=== PATIENT | female | born 1935 | race Hispanic/Latino ===

== ENCOUNTER 2024-01-16 22:14 | Emergency (ER) | payer OTHER, SELFPAY ==
[2024-01-16 22:16] VITALS: BP 175/108
[2024-01-16 22:33] VITALS: BP 165/82
[2024-01-16 22:44] LABS: % Basophils 1.4 % (0-2); % Eosinophils 2.9 % (0-6); % Immature Granulocytes 0.2 % (0-0.5); % Lymphocytes 36.9 % (20.5-51.1); % Monocytes 7.9 % (1.7-9.3); % Neutrophils 50.7 % (42.2-75.2); Absolute Basophils 0.1 10^3/uL (0-0.2); Absolute Eosinophils 0.1 10^3/uL (0-0.7); Absolute Lymphocytes 1.6 10^3/uL (1.2-3.4); Absolute Monocytes 0.4 10^3/uL (0.1-0.6); Absolute Neutrophils 2.3 10^3/uL (1.4-6.5); Hematocrit 41.8 % (37.0-47.0); Hemoglobin 14.8 g/dL (12.0-16.0); Mean Corp Hgb Conc. 35.4 g/dL (33.0-37.0); Mean Corpuscular Hgb 30.3 pg (27.0-31.0); Mean Corpuscular Volume 85.7 fL (81.0-99.0); Nucleated Red Blood Cells % 0 %; Platelet Count 265 10^3/uL (130-400); Red Blood Cell Count 4.88 10^6/uL (4.20-5.40); Red Cell Dist. Width 12.7 % (11.5-14.5); White Blood Cell Count 4.4 10^3/uL (4.8-10.8)
[2024-01-16 23:00] VITALS: BP 156/77
[2024-01-16 23:01] LABS: ALT (SGPT) 24 U/L (0-35); AST (SGOT) 27 U/L (14-36); Albumin 4.4 g/dl (3.5-5.0); Alkaline Phosphatase 137 U/L (38-126); Blood Urea Nitrogen 11 mg/dl (7-17); Calcium 10.9 mg/dl (8.4-10.2); Carbon Dioxide 23 mmol/L (22-30); Chloride 110 mmol/L (98-107); Glucose 113 mg/dl (70-99); Potassium 3.6 mmol/L (3.5-5.1); Sodium 139 mmol/L (135-145); Total Bilirubin 0.8 mg/dl (0.2-1.3); Total Protein 7.1 g/dl (6.3-8.2); eGFR > 60.00
--- NOTE | 2024-01-16 23:54 | ED.GENMED ---
History of Present Illness
General
Chief Complaint: Blood Pressure Problem
Source: patient and family (Daughter)
Exam Limitations: other (Language barrier)
Time Seen by Provider: 01/16/24 22:55
Travel History
Have you had any contact with someone who has COVID-19?: No
Do you have any symptoms of coronavirus? Fever > 100 degrees, chills, cough, shortness of breath, sore throat, loss of taste or smell, muscle aches, or headache?: No
History of Present Illness
History of Present Illness:
This is a 88 year old female that is brought in by daughter with hypertension. Daughter states that she has been upset as her sister is sick. State that yesterday her BP was 180-184/90. States that on Thursday she was c/o tingling in her fingers and
mouth felt numb. States that she is also wobbly when she walks. States that she is not eating. States that tonight around 6pm she said that she had chest pain, SOB, nausea, headache. Denies any fever, chills, abd pain, vomiting, diarrhea,
dizziness, urinary burning.
Past History
Past History
ED Past Medical History: Arrthythmia, GERD, HTN and Other (Osteoarthritis, UTi, )
ED Past Surgical History: Cholecystectomy, and Other (Hernia repair X 2, Cataracts)
Patient has exhibited threatening behavior?: No
Social History
Tobacco: Former smoker
Alcohol: None
Drug: None
Personal: Single
Living: with family
Employment: Retired
Review of Systems
Review of Systems
All Other Systems: ROS reviewed and negative except as documented in HPI and ROS
Constitutional: Reports no symptoms; Denies fever or chills
EENT: Reports no symptoms
Respiratory: Reports trouble breathing; Denies cough
Cardiac: Reports chest pain
ABD/GI: Reports nausea; Denies abdominal pain, vomiting or diarrhea
: Reports no symptoms; Denies dysuria, frequency or urgency
Musculoskeletal: Reports no symptoms
Skin: Reports no symptoms
Neurological: Reports headache; Denies dizzy
Psychiatric: Reports no symptoms
Phy Exam
General Physical Exam
General Presentation: no apparent distress
General age: appears stated age
General Skin: warm and dry
General Habitus: elderly
General Mental: alert
General Hydration: appears well hydrated
ENT Exam
ENT Exam: TM's normal, pharynx normal and neck supple
Eye Exam
Eye Exam: EOMI
Cardiovascular Exam
Cardiovascular Exam: regular rate/rhythm, no edema, no murmur and normal peripheral pulses
Pulmonary Exam
Pulmonary Exam: lungs clear, no respiratory distress, no rales, chest non tender, no crackles, no rhonchi, no wheezing and no cough
Gastrointestinal Exam
Gastrointestinal Exam: normal bowel sounds, soft, no organomegaly, no pulsatile mass, non distended and tender (Epigastric tenderness)
Musculoskeletal Exam
Musculoskeletal Exam: full ROM and no edema
Skin Exam
Skin Exam: normal color, warm/dry, no rash and no petechia
Psychiatric Exam
Psychiatric Exam: normal mood/affect
Course
Orders/Labs/Results
Orders:
Orders
01/16/24 22:39
Complete Blood Count/With Diff Urgent
Comprehensive Metabolic Panel Urgent
01/16/24 23:53
Ondansetron Injectable [Zofran] 4 mg IV NOW STA
Pantoprazole [Protonix IV] 40 mg IV NOW STA
01/16/24 23:57
Troponin I Urgent
01/17/24 00:00
CT Head W/o Iv Contrast Urgent
Reason For Exam: Headache, Tingling in fingers
01/17/24 00:03
Electrocardiogram (*1) Urgent
Reason for Study: Abdominal Pain
EKG- Treatment ONCE
CR Chest - 2 Views Urgent
Comment:
Reason For Exam: SOB
01/17/24 00:22
Urinalysis Reflex To Culture Urgent
Date Specimen was Collected: 01/17/24
Time Specimen was Collected: 00:04
01/17/24 01:09
Acetaminophen [Tylenol] 1,000 mg PO NOW STA
Abnormal Lab Results
01/16/24
22:39
WBC 4.4 L 10^3/uL
(4.8-10.8)
Chloride 110 H mmol/L
(98-107)
Glucose 113 H mg/dl
(70-99)
Calcium 10.9 H mg/dl
(8.4-10.2)
Alkaline Phosphatase 137 H U/L
(38-126)
01/16/24 22:39
01/16/24 22:39
WBC slightly low. Chloride slightly elevated. Glucose nonfasting. Calcium slightly elevated ALk phos elevation.
Vital Signs
Initial and Last Documented VS:
Initial Vital Signs
Temp Pulse Resp BP Pulse Ox
98.3 F 82 18 175/108 98
01/16/24 22:16 01/16/24 22:16 01/16/24 22:16 01/16/24 22:16 01/16/24 22:16
Last Documented Vital Signs
Temp Pulse Resp BP Pulse Ox
98.3 F 63 14 145/77 98
01/16/24 22:16 01/17/24 01:00 01/17/24 01:00 01/17/24 01:00 01/16/24 22:16
MDM/Problems Addressed
Differential Diagnosis Includes:
Gastritis, GERD,
MDM/Problems Addressed:
This is a 88 year old female that comes in with c/o epigastric discomfort. States that she had chest pain at 6am. States that she has been upset as her sister is sick. States that she is not eating, is nauseated, has a headache, and some SOB.
Will get Labs, Chest x-ray, CT head, Urine.
Back into see patient and daughter. Patient states that she is feeling better. Explained that her chest x-ray was normal. CT of the head was normal. Urine is negative for infection. Troponin is normal. Feel that her epigastric discomfort is
gastritis. Explained to patient that she has to eat. Will give patient a prescription for Protonix to help decrease the acid. Patient to follow up with the family doctor. BP at this time is 145/77. Patent to return with any concerns.
Chronic conditions affecting care: HTN
Acute Exacerbation and/or Progression of Chronic Illness: HTN
*Radiology
Radiology exam reviewed: preliminary read by ED provider (Chest- Negative for active disease) and radiology read reviewed (CT head- No acute intracranial abnormality. NO acute territorial infarct, hemorrhage, mass effect, or midline shift. Mild
microangiopathy. )
*Pulse Oximetry
Patient hypoxic: no
*EKG
Interpreted by ED Provider?: Yes
Heart Rate: 66
Rate: normal
Rhythm: sinus
[employer]: normal axis
Interval: normal interval
QRS Pattern: normal QRS
Ischemia: no ischemia (Checked by Dr. Strong)
*Critical Care Note
Total Time (30-74mins, 75-104mins- exclusive of procedures): Not Applicable
ED Attending Note
-
Portions of this chart may have been created with voice recognition software.� Occasional wrong word or��sound alike� substitutions may have occurred due to the inherent limitations of voice recognition software.
Discharge Plan
Departure
Patient Disposition: Home (Routine Discharge)
Date of Disposition: 01/17/24
Time of Disposition: 01:24
Patient with high blood pressure during this ER visit?: Yes
Condition: Good
Covid-19: Not Applicable
Discharge Problem:
Gastritis
Instructions: Gastritis (DC), Ulcer and Gastritis Diet, BLOOD PRESSURE
Prescriptions:
New
pantoprazole [Protonix] 40 mg tablet,delayed release (DR/EC)
40 mg PO DAILY Qty: 30 0RF
No Action
amlodipine 2.5 MG tablet
2.5 mg PO TID
pantoprazole 40 MG tablet,delayed release (/ONEIDA)
40 mg PO BID Qty: 60 0RF
Referrals:
Erin Mauricio PA [Family Provider] - Follow up in 2-3 days
Activity Restrictions/Additional Instructions:
As discussed, your blood work is normal. Your Chest x-ray, CT of the head and urine are all normal. This is most likely a gastritis. Please use the Protonix daily to help decrease the acid in the stomach. This prescription has been sent to your
Pharmacy. Please eat a well balanced diet. Follow up with the family doctor for recheck. IF YOU HAVE INCREASED OR CHANGING ABD PAIN, OR YOU HAVE ANY OTHER CONCERNS PLEASE RETURN TO THE EMERGENCY ROOM.
Interventions
Interventions:
*Risk Screen - Suicide Last Done: 01/16/24 22:16
*General Assessment Last Done: 01/16/24 22:16
*ED COVID-19 Vaccine History Last Done: 01/16/24 22:16
ED- Cardiac Assessment Last Done: 01/16/24 22:42
ED- Neurological Assessment Last Done: 01/16/24 22:42
ED- Pulmonary Assessment Last Done: 01/16/24 22:42
Discharge Date and Time
Print Language: THAI
[2024-01-16] MEDS: ZOFRAN 4 MG IV (23:58)
[2024-01-16] MEDS: PROTONIX IV 40 MG IV (23:58)
[2024-01-17] VITALS: BP 147/75
[2024-01-17 00:33] LABS: Troponin I < 0.012 ng/ml
[2024-01-17 00:44] LABS: Urine Albumin Negative (Neg - Trace); Urine Bilirubin Negative (Negative); Urine Character Clear (Clear); Urine Color Yellow; Urine Glucose Negative (Negative); Urine Ketone Negative (Negative); Urine Leukocyte Negative (Negative); Urine Nitrite Negative (Negative); Urine Occult Blood Negative (Negative); Urine Urobilinogen Negative (Neg - 1+)
[2024-01-17 01:00] VITALS: BP 145/77
[2024-01-17] MEDS: TYLENOL 1000 MG PO (01:16)
== END 2024-01-17 01:33 | disposition home or self-care (01) ==
LOC: EMR 22:14
PROVIDERS: Clinical Nurse Specialist Family Health; EMERGENCY PHYSICIAN Student in an Organized Health Care Education/Training Program; FAMILY PHYSICIAN Physician Assistant Medical
DX: K29.70 Gastritis, unspecified, without bleeding (principal); I10 Essential (primary) hypertension; Z87.891 Personal history of nicotine dependence
CPT/HCPCS: 99285; 96374; 96375; 70450; 71046; 80053; 81003; 84484; 85025; 93005

== ENCOUNTER → 2024-04-04 17:21 | Outpatient (REF) | payer OTHER, SELFPAY | LOC: RAD 17:21 | PROVIDERS: ATTENDING PHYSICIAN Physician Assistant Medical | DX: M25.511 Pain in right shoulder (principal) | CPT/HCPCS: 73030 ==

== ENCOUNTER → 2024-04-15 11:17 | Outpatient (REF) | payer OTHER, SELFPAY | LOC: PAVMRI 11:17 | PROVIDERS: ATTENDING PHYSICIAN Family Medicine | DX: R42 Dizziness and giddiness (principal); I10 Essential (primary) hypertension; R26.9 Unspecified abnormalities of gait and mobility | CPT/HCPCS: 70546; 70553; A9585 ==

== ENCOUNTER 2025-06-30 14:07 | Outpatient (RCR) | payer OTHER, SELFPAY | END 2025-06-30 23:59 | disposition home or self-care (01) | LOC: RPT 14:07 | PROVIDERS: ATTENDING PHYSICIAN Orthopaedic Surgery; FAMILY PHYSICIAN Physician Assistant Medical | DX: M75.41 Impingement syndrome of right shoulder (principal); Z73.6 Limitation of activities due to disability; M62.81 Muscle weakness (generalized) | CPT/HCPCS: 97010; 97110; 97162 ==

== ENCOUNTER 2025-08-03 11:02 | Outpatient (RCR) | payer OTHER, SELFPAY | END 2025-08-03 23:59 | disposition home or self-care (01) | LOC: RPT 11:02 | PROVIDERS: ATTENDING PHYSICIAN Orthopaedic Surgery; FAMILY PHYSICIAN Physician Assistant Medical | DX: M75.41 Impingement syndrome of right shoulder (principal); Z73.6 Limitation of activities due to disability; M62.81 Muscle weakness (generalized) | CPT/HCPCS: 97010; 97110 ==

== ENCOUNTER → 2025-09-01 12:09 | Outpatient (REF) | payer OTHER, SELFPAY | LOC: RAD 12:09 | PROVIDERS: ATTENDING PHYSICIAN Family Medicine | DX: K43.9 Ventral hernia without obstruction or gangrene (principal) | CPT/HCPCS: 74177; Q9967 ==

== ENCOUNTER 2025-09-05 17:58 | Inpatient (IN) | payer OTHER, SELFPAY ==
[2025-09-05] VITALS (15 sets, daily range): BP systolic 127–176; BP diastolic 67–94; BMI 28.3; BMI 25.7
--- NOTE | 2025-09-05 13:02 | ED.GENMED ---
History of Present Illness
<Janiya Mayer MD, Resident - Last Filed: 09/05/25 16:01>
General
Chief Complaint: Abdominal Pain
Source: patient and family
Exam Limitations: none
Time Seen by Provider: 09/05/25 12:51
Nursing documentation reviewed up to this point in time: agreed with
History of Present Illness
History of Present Illness:
89yo F with a hx of R femoral hernia (s/p repair x2) who presents with concern for bowel obstruction in s/o hernia recurrence.
Per patient's daughter at bedside, patient has had her R femoral hernia repaired multiple times over the years. Recently she began having pain and bulging in the RLQ and got CT scan of the abdomen on 09/01. CT was read as Right inguinal hernia
containing a short segment of small bowel without proximal bowel obstruction. Per patient's daughter, patient has been having difficulty with BMs the past 5 days. Gave 2x miralax, which did not help significantly. She has been passing flatus. Has
been having nausea but no vomiting. BMs have been minimal and very small, like little threads. Endorses ongoing RLQ pain but no sensation of tense or tight abdomen. PCP today recommended that she come to the ED because repeat read of the CT scan by
surgeon concluded that the bowel may be obstructed and pt may require surgery. Denies f/c. Prior intraabdominal sugeries include & cholecystectomy.
Past History
<Janiya Mayer MD, Resident - Last Filed: 09/05/25 16:01>
Past History
ED Past Medical History: Arrthythmia, GERD, HTN and Other (Osteoarthritis, UTi, )
ED Past Surgical History: Cholecystectomy, and Other (Hernia repair X 2, Cataracts)
Patient has exhibited threatening behavior?: No
Social History
Tobacco: Former smoker
Alcohol: None
Drug: None
Personal: Single
Living: with family
Employment: Retired
Review of Systems
<Janiya Mayer MD, Resident - Last Filed: 09/05/25 16:01>
Review of Systems
All Other Systems: ROS reviewed and negative except as documented in HPI and ROS
Constitutional: Reports no symptoms
EENT: Reports no symptoms
Respiratory: Reports no symptoms
Cardiac: Reports no symptoms
ABD/GI: Reports abdominal pain, nausea and constipated
: Reports no symptoms
Musculoskeletal: Reports no symptoms
Skin: Reports no symptoms
Neurological: Reports no symptoms
Phy Exam
<Janiya Mayer MD, Resident - Last Filed: 09/05/25 16:01>
General Physical Exam
General Presentation: mild distress
General age: appears stated age
General Skin: warm and dry
General Habitus: normal
General Mental: alert
Cardiovascular Exam
Cardiovascular Exam: regular rate/rhythm and no edema
Pulmonary Exam
Pulmonary Exam: no respiratory distress
Gastrointestinal Exam
Gastrointestinal Exam: soft, non distended, tender (tender to palpation bilateral lower quadrants, especially RLQ very tender (no guarding or rebound) ) and other (no palpable bulging hernia, no area of overlying erythema )
Neurological Exam
Neurological Exam: alert
Musculoskeletal Exam
Musculoskeletal Exam: full ROM
Skin Exam
Skin Exam: normal color
Psychiatric Exam
Psychiatric Exam: normal mood/affect
Course
<Janiya Mayer MD, Resident - Last Filed: 09/05/25 16:01>
Orders/Labs/Results
Orders:
Orders
09/05/25 13:37
Complete Blood Count/With Diff Urgent
Comprehensive Metabolic Panel Urgent
Lactic Acid Urgent
Lipase Urgent
Magnesium Urgent
0.9% Sodium Chloride 1000 ml [Nss] 1,000 ml IV BOLUS
Iohexol [Omnipaque] See Protocol PO NOW STA
Morphine Sulfate 4 mg IV NOW STA
Ondansetron Injectable [Zofran] 4 mg IV NOW STA
Abnormal Lab Results
09/05/25
13:37
Calcium 10.7 H mg/dl
(8.4-10.2)
09/05/25 13:37
09/05/25 13:37
Vital Signs
Initial and Last Documented VS:
Initial Vital Signs
Temp Pulse Resp BP Pulse Ox
97.9 F 86 20 162/94 98
09/05/25 12:23 09/05/25 12:23 09/05/25 12:23 09/05/25 12:23 09/05/25 12:23
Last Documented Vital Signs
Temp Pulse Resp BP Pulse Ox
98.6 F 76 19 176/94 97
09/05/25 13:29 09/05/25 14:26 09/05/25 14:26 09/05/25 14:26 09/05/25 14:26
<Luis Hernandez, DO - Last Filed: 09/05/25 13:54>
Orders/Labs/Results
Orders:
Orders
09/05/25 13:37
Complete Blood Count/With Diff Urgent
Comprehensive Metabolic Panel Urgent
Lactic Acid Urgent
Lipase Urgent
Magnesium Urgent
0.9% Sodium Chloride 1000 ml [Nss] 1,000 ml IV BOLUS
Iohexol [Omnipaque] See Protocol PO NOW STA
Morphine Sulfate 4 mg IV NOW STA
Ondansetron Injectable [Zofran] 4 mg IV NOW STA
Abnormal Lab Results
09/05/25
13:37
Calcium 10.7 H mg/dl
(8.4-10.2)
09/05/25 13:37
09/05/25 13:37
Vital Signs
Initial and Last Documented VS:
Initial Vital Signs
Temp Pulse Resp BP Pulse Ox
97.9 F 86 20 162/94 98
09/05/25 12:23 09/05/25 12:23 09/05/25 12:23 09/05/25 12:23 09/05/25 12:23
Last Documented Vital Signs
Temp Pulse Resp BP Pulse Ox
98.6 F 76 19 176/94 97
09/05/25 13:29 09/05/25 14:26 09/05/25 14:26 09/05/25 14:26 09/05/25 14:26
<Janiya Mayer MD, Resident - Last Filed: 09/05/25 16:01>
MDM/Problems Addressed
Differential Diagnosis Includes:
Partial SBO 2/2 R femoral hernia
Incarcerated or strangulated hernia not likely given lack of palpable bulge on exam, no red/dusky or tender bump
Less likely appendicitis, pancreatitis
MDM/Problems Addressed:
- Zofran
- Analgesia
- CBC, CMP, lipase
- PO contrast, will reimage abdomen
- Consult surgery
<Janiya Mayer MD, Resident - Last Filed: 09/05/25 16:01>
*Pulse Oximetry
SaO2: 98
Oxygen Mode of Delivery: Room air
Patient hypoxic: no
*Critical Care Note
Total Time (30-74mins, 75-104mins- exclusive of procedures): Not Applicable
<Janiya Mayer MD, Resident - Last Filed: 09/05/25 16:01>
Update Note
Update Note:
2:30pm
Seen by Dr. Cash, discussed. Non-urgent surgery, reducible hernia. If he can fit her on the OR schedule today, will operate. If not, will discharge & schedule for outpatient repair.
3:15pm
Shailesh unable to get pt on the schedule for tonight, but patient prefers to be admitted. Okay with admission for obs tonight and attempt for repair on schedule tomorrow am.
4:00pm
Pt refused repeat abdominal CT scan. Discussed with surgery, okay to cancel. Still plan for admission.
ED Attending Note
<Janiya Mayer MD, Resident - Last Filed: 09/05/25 16:01>
-
Portions of this chart may have been created with voice recognition software.� Occasional wrong word or��sound alike� substitutions may have occurred due to the inherent limitations of voice recognition software.
<Luis Hernandez DO - Last Filed: 09/05/25 13:54>
ED Attending Note
Patient seen and examined by attending physician: Yes
I performed a history and physical exam of patient and discussed management with resident, I reviewed resident's note and agree with documented findings and plan of care.: Yes
ED Attending Note:
Seen with resident examined independently 89-year-old female hypertension at least 2 right sided hernia repairs, 1 left sided femoral hernia repair the right sided hernia repairs were at a hospital in [place] details are unclear left-sided was
here by Dr. Tello about 10 years ago, she also had her gallbladder out presents with increased right lower abdominal pain, had an outpatient CT last week showed hernia with a loop of bowel with no secondary signs of obstruction or strangulation
pain is worsening she is nauseous, she is passing gas and feels constipated we will repeat her labs, asked for surgical evaluation
Discharge Plan
Departure
Patient Disposition: Admit
Date of Disposition: 09/05/25
Time of Disposition: 15:12
Admit to: Med/Surg
Admit to doctor: Shailesh
Presentation/result/management discussed w/ accepting MD/DO: General Surgery
Patient with high blood pressure during this ER visit?: Yes
Condition: Fair
Covid-19: Not Applicable
Discharge Problem:
R hernia
Prescriptions:
No Action
amlodipine [Norvasc] 5 mg Tablet
5 mg PO DAILY
omeprazole 40 mg Capsule,Delayed Release(/Ec)
40 mg PO DAILY
Referrals:
Romina Gayle DO [Family Provider, Family Practice]
Interventions
Interventions:
*Risk Screen - Suicide Last Done: 09/05/25 12:23
*General Assessment Last Done: 09/05/25 12:23
*Neglect/Abuse Screening Last Done: 09/05/25 12:23
*ED COVID-19 Vaccine History Last Done: 09/05/25 13:29
*ED Influenza Vaccine History Last Done: 09/05/25 13:29
[facility] Fall Risk Assessment Tool Last Done: 09/05/25 13:29
QX-Nkusjn-Qeqymfyoeb Assessment Last Done: 09/05/25 13:29
Discharge Date and Time
Print Language: YAKUT
[2025-09-05] MEDS: OMNIPAQUE 50 ML PO (13:44)
[2025-09-05] MEDS: MORPHINE SULFATE 4 MG IV (13:45)
[2025-09-05] MEDS: ZOFRAN 4 MG IV ×2 (13:45→18:28)
[2025-09-05] MEDS: NSS 1000 IV (13:45)
[2025-09-05 13:56] LABS: Hematocrit 43.0 % (37.0-47.0); Hemoglobin 14.8 g/dL (12.0-16.0); Mean Corp Hgb Conc. 34.4 g/dL (33.0-37.0); Mean Corpuscular Volume 89.8 fL (81.0-99.0); Nucleated Red Blood Cells % 0 %; Platelet Count 242 10^3/uL (130-400); Red Cell Dist. Width 13.1 % (11.5-14.5)
[2025-09-05 14:13] LABS: ALT (SGPT) 27 U/L (0-35); AST (SGOT) 25 U/L (14-36); Albumin 4.4 g/dl (3.5-5.0); Alkaline Phosphatase 121 U/L (38-126); Blood Urea Nitrogen 16 mg/dl (7-17); Calcium 10.7 mg/dl (8.4-10.2); Carbon Dioxide 27 mmol/L (22-30); Chloride 107 mmol/L (98-107); Estimated Creatinine Clearance 46 ml/min; Glucose 86 mg/dl (70-99); Lipase 94 U/L (23-300); Magnesium 2.0 mg/dl (1.6-2.3); Potassium 4.0 mmol/L (3.5-5.1); Sodium 139 mmol/L (135-145); Total Protein 6.9 g/dl (6.3-8.2); eGFR > 60.00
--- NOTE | 2025-09-05 14:38 | CON.GS ---
Addendum entered and electronically signed by Evan Cash MD 09/05/25 17:32:
Patient refusing repeat CT scan. Clinically stable as noted below with normal WBC and reducible hernia on exam.
Original Note:
Medical History
-
Chief Complaint: RIGHT groin pain
History of Present Illness:
Patient is an 89 yo F with a PMH of GERD, HTN, OA, s/p laparoscopic cholecystectomy, s/p , s/p open primary LEFT femoral hernia repair by Dr. Tello in 2014 and s/p open RIGHT inguinal hernia repair years ago at [facility] in [facility]
[place]. Ms. Zuluaga is accompanied to the hospital by her daughter. She reports approximately 1 week ago developing RIGHT groin discomfort. No clear inciting event. She subsequently noticed a bulge. She has had persistent discomfort and a
bulge on that side. Bulge which fluctuates with position and throughout the day. Daughter reports some issues with constipation over the last few days. She is continues to pass flatus. No nausea or vomiting. A CT scan of the abdomen and pelvis
was obtained by her PCP which demonstrated a RIGHT recurrent inguinal hernia containing non-obstructed loops of small bowel. Due to the findings of this imaging as well as concerns for constipation she was referred to the ER.
Past Medical History
Past Medical History: GERD, HTN and Other (OA)
Past Surgical History: Cholecystectomy, and Hernia Repair (Open primary LEFT femoral hernia, open RIGHT inguinal hernia repair with mesh)
Social History
Tobacco: Non-Smoker
Alcohol: None
Drug: None
Family History
Family History: Reviewed & Not Pertinent
Allergies / Home Medications
Allergy/AdvReac Type Severity Reaction Status Date / Time
No Known Allergies Allergy Verified 09/05/25 12:26
�Medication �Instructions �Recorded �Confirmed �Type
amlodipine 2.5 mg tablet 2.5 mg PO TID Blood pressure 01/31/21 09/05/25 History
pantoprazole 40 mg tablet,delayed 40 mg PO BID #60 tabs 02/03/21 09/05/25 Rx
release
Review of Systems
-
A 10 point review of systems was completed, and was negative except as per HPI.
Physical Exam
Vital Signs
Temp Pulse Resp BP Pulse Ox
98.6 F 76 19 176/94 97
09/05/25 13:29 09/05/25 14:26 09/05/25 14:26 09/05/25 14:26 09/05/25 14:26
09/04/25 09/05/25 09/06/25
06:59 06:59 06:59
Actual Weight 63.503 kg
Body Mass Index (BMI) 28.3
Lab Results
09/05/25 13:37
09/05/25 13:37
WBC 6.9 10^3/uL (4.8-10.8) 09/05/25 13:37
Hgb 14.8 g/dL (12.0-16.0) 09/05/25 13:37
Hct 43.0 % (37.0-47.0) 09/05/25 13:37
Plt Count 242 10^3/uL (130-400) 09/05/25 13:37
Abs Immat Gran (auto) 0.0 10^3/uL (0-0.05) 09/05/25 13:37
Neutrophils % 61.0 % (42.2-75.2) 09/05/25 13:37
Physical Exam
General: Well Developed, Well Nourished and No Apparent Distress
HEENT: Normocephalic and Anicteric
Respiratory: Non Labored Respirations
Cardiac: Regular Rhythm
GI: Soft, Non Tender, Non Distended, Incisions (well healed), Obese and Other (None-peritoneal)
Genito-urinary: Inguinal Hernia (RIGHT inguinal hernia, soft, reducible, mild tenderness)
Musculoskeletal: No Edema
Skin: Warm and Dry
Neuro: Nonfocal/Grossly Intact
Data Reviewed
-
CT Scan: Image Personally Visualized and interpreted and Report Reviewed by me
Labs: Labs Reviewed by me
Old Records: Reviewed
Assessment / Plan
-
Patient is a 89 yo p/w symptomatic recurrent reducible RIGHT inguinal hernia
The natural history and pathophysiology of inguinal hernias was reviewed. Options for management including watchful waiting versus surgical repair were considered and discussed. The pros and cons of both approaches was discussed. Specifically, we
discussed persistent symptoms, increased size with time, and the low likelihood of strangulation or obstruction. Given the presence of small bowel within the hernia there is some increased risk for strangulation or obstruction. Repeat CT scan
ordered. Labs reassuring with normal WBC and lactate. Given the reducible nature of her hernia there is no emergent need. Options for surgical repair including both open and MIS were considered and discussed. Given the recurrent nature of her
hernia previously performed in an open fashion, would recommend a robotic/MIS approach. Unfortunately OR unable to accommodate operative repair today, plan for admission with possible repair tomorrow. All questions aswered.
-- Added to OR schedule for RAL recurrent RIH repair with mesh
-- Clears, NPO PM
-- Pain control: Tylenol and IV Dilaudid PRN
-- Home meds
-- DVT: Lovenox
[2025-09-05] MEDS: DILAUDID 0.25 MG IV (18:28)
[2025-09-05] MEDS: PROTONIX IV 40 MG IV (18:28)
[2025-09-05] MEDS: NSS (PRESERVATIVE FREE) 10 ML IV (18:28)
[2025-09-05] MEDS: TYLENOL 650 MG PO (20:40)
[2025-09-05] MEDS: LOVENOX 40 MG SC (20:40)
--- NOTE | 2025-09-05 21:45 | PTCARENOTE ---
Received pt from ED via stretcher accompanied by ED staff and pt's daughter. AAOx3, with slight abdominal discomfort and sharp pain at times. She was given tylenol one hour prior in the ED and felt she was not in enough pain at this time for her PRN
Dilaudid. Pt's daughter assisted in answering admission questions as patient is Korean speaking only. Pt oriented to room with call valerio within reach.
--- NOTE | 2025-09-05 21:45 | PTCARENOTE ---
Pt arrived to floor via stretcher accompanied by ED staff. AAOx3, ambulatory to bed. VSS on 2L NC w/o complaints of pain. Pt oriented to room with call valerio within reach.
[2025-09-06] VITALS (11 sets, daily range): BP systolic 125–156; BP diastolic 45–78
[2025-09-06] MEDS: TYLENOL 650 MG PO ×4 (00:10→19:24)
[2025-09-06] MEDS: NORMOSOL-R/PLASMALYTE-A 1000 IV ×2 (00:10→20:18)
[2025-09-06] MEDS: TYLENOL PO ×3 (08:14→15:17)
[2025-09-06] MEDS: NORMOSOL-R/PLASMALYTE-A IV (14:30)
--- NOTE | 2025-09-06 14:32 | W.SUR.PREOP ---
Pre-Operative Surgical Note
-
I have examined this patient prior to the performance of the scheduled procedure.
The patient's condition is unchanged from the time of the current History and
Physical and the patient is able to undergo the scheduled procedure.
--- NOTE | 2025-09-06 16:13 | CM ---
Patient off floor to OR. Daughter bedside, initial assessment completed.
Patient resides w/ her daughter in a 2STH, 2 steps to enter. Patient is independent w/ ambulation, no device required. Independent w/ ADLs and personal care. No DME. Patient speaks primarily Bulgarian, daughter assists w/ all translation. No SNF/HC
hx. OP PT at ambulatory center recently, last seen at the end of July. Patient does not drive.
Address, point of contact and insurance verified
PCP: Romina Gayle
Pharmacy: [facility] ([facility])
CM consulted for advanced directive. Daughter, Brandi, receptive to copy stating she always translates for patient w/ decision making.
Plan: Home, will watch for d/c needs
--- NOTE | 2025-09-06 16:41 | W.IMMPOSTOP ---
Surgical Immed Post Op Note
-
Primary Surgeon: Shailesh
Assisting Surgeon: ARANZA Mike
Pre-op Diagnosis: Recurrent RIGHT inguinal hernia
Post-op Diagnosis: Recurrent RIGHT inguinal hernia
Procedure Performed: Robotic recurrent RIGHT inguinal hernia repair with mesh
Anesthesia Type: General
Specimen / Cultures: None
Estimated Blood Loss: 3 cc
Complications: None
Operative Findings:
1. Moderate indirect inguinal hernia, fair amount of scar, all contents found to be reduced, bowel healthy and viable
2. Bard 3D Max large mid-weight mesh repair
[2025-09-06] MEDS: DILAUDID 0.25 MG IV ×5 (17:16→22:51)
[2025-09-06] MEDS: ULTRAM 50 MG PO (18:26)
--- NOTE | 2025-09-06 18:35 | PTCARENOTE ---
Pt recvd back to the floor from the OR. Pt is a+ox3. Vitals stable, pain in 07/14. Gave pain medication now. family bedside assiting with liliana harvey. no other complaints at this time.
[2025-09-07] MEDS: DILAUDID 0.25 MG IV (03:37)
[2025-09-07] MEDS: TYLENOL 650 MG PO ×2 (03:41→09:34)
[2025-09-07 03:43] VITALS: BP 124/70
[2025-09-07] MEDS: TYLENOL PO (06:09)
[2025-09-07 07:23] VITALS: BP 134/70
[2025-09-07] MEDS: MIRALAX 17 GRAMS PO (09:34)
[2025-09-07] MEDS: ULTRAM 50 MG PO (10:02)
--- NOTE | 2025-09-07 10:39 | W.PN.GS2 ---
Today's Communication / Plan
-
-- Regular diet
-- Miralax, milk of magnesia
-- DC today
Assessment / Plan
-
Patient is an 89 yo F p/w symptomatic recurrent RIGHT inguinal hernia.
POD#1 s/p robotic recurrent RIGHT inguinal hernia repair with mesh
AVSS
Recovering well overall. No major postoperative concerns.
-- Regular diet
-- Pain control: Tylenol, Ibuprofen, Tramadol
-- DC IVF
-- Miralax, milk of magnesia
-- Home meds
-- DVT: Lovenox
-- DC today
Subjective Data
-
Date of Service: September 07, 2025
Reports abdominal and RIGHT groin discomfort, Overall well-controlled. Tolerating regular diet, no nausea or vomiting. Passing flatus, no BM. Afebrile.
Objective Data
-
Intake and Output
09/06/25 09/07/25 09/08/25
06:59 06:59 06:59
Intake Total 120 / 120 825 / 825
Output Total 500 / 500
Balance 120 / 120 325 / 325
Intake:
Oral fluids 120 / 120
IV fluids (Total) 825 / 825
Output:
Urine, Nunez 500 / 500
Other:
Number of approximated MODERATE 2 2
amounts of urine
Number of approximated LARGE 1
amounts of urine
Vital Signs
Temp Pulse Resp BP Pulse Ox
98.3 F 56 16 134/70 98
09/07/25 07:23 09/07/25 07:23 09/07/25 07:23 09/07/25 07:23 09/07/25 07:23
Lab Results
09/05/25 13:37
09/05/25 13:37
Calcium 10.7 mg/dl (8.4-10.2) H 09/05/25 13:37
Magnesium 2.0 mg/dl (1.6-2.3) 09/05/25 13:37
Total Bilirubin 0.9 mg/dl (0.2-1.3) 09/05/25 13:37
AST 25 U/L (14-36) 09/05/25 13:37
ALT 27 U/L (0-35) 09/05/25 13:37
Alkaline Phosphatase 121 U/L (38-126) 09/05/25 13:37
Total Protein 6.9 g/dl (6.3-8.2) 09/05/25 13:37
Albumin 4.4 g/dl (3.5-5.0) 09/05/25 13:37
Physical Exam
-
Gen: NAD
Abd: soft, tender in upper abdomen at incisions and RIGHT groin, ND, non-peritoneal, incisions c/d/i - no erythema, ecchymosis or drainage, no palpable RIGHT inguinal hernia or seroma
Patient has a nunez catheter: No
Patient has a central line: No
--- NOTE | 2025-09-07 11:36 | CM ---
Patient will discharge home today w/ daughter
Met w/ patient and daughter bedside. IMM verbally reviewed, copy provided, copy on chart
Daughter asking about caregiver support as she is the only caregiver for patient but is planning to return to work next week and does not feel comfortable w/ patient being by herself, although, her is home as well. CM shared a list of
caregivers can be provided as that is an option, daughter stated she will google some information.
No CM needs at this time
Plan: Home, no needs
== END 2025-09-07 11:57 | disposition home or self-care (01) | DRG 337 ==
LOC: 4 EAST ACU 17:58
PROVIDERS: ADMITTING PHYSICIAN Surgery; EMERGENCY PHYSICIAN Emergency Medicine; FAMILY PHYSICIAN Family Medicine
PROC: 0YU54JZ Supplement Right Inguinal Region with Synthetic Substitute, Percutaneous Endoscopic Approach (ICD-10-PCS; 2025-09-06)
PROC: 0DNU0ZZ Release Omentum, Open Approach (ICD-10-PCS; 2025-09-06)
PROC: 8E0W4CZ Robotic Assisted Procedure of Trunk Region, Percutaneous Endoscopic Approach (ICD-10-PCS; 2025-09-06)
DX: K40.91 Unilateral inguinal hernia, without obstruction or gangrene, recurrent (principal); Z87.891 Personal history of nicotine dependence; I10 Essential (primary) hypertension; K66.0 Peritoneal adhesions (postprocedural) (postinfection)
CPT/HCPCS: 80053; 83605; 83690; 83735; 85025; 96361; 96374; 96375; 99285